=== PATIENT | male | born 1990 | race Caucasian/White ===

== ENCOUNTER 2019-08-06 11:40 | Emergency (ER) | payer SELFPAY ==
[~2019-08-06] VITALS: Ht 172.7 cm; Wt 59.1 kg
[2019-08-06 14:00] VITALS: BP 131/89
[2019-08-06 14:28] LABS: INFLUENZA TYPE A POSITIVE FOR TYPE A (NEGATIVE); INFLUENZA TYPE B NEGATIVE FOR TYPE B (NEGATIVE)
== END 2019-08-06 14:58 | disposition home or self-care (01) ==
LOC: EMS 11:43
DX: J10.1 Influenza due to other identified influenza virus with other respiratory manifestations (principal); R19.7 Diarrhea, unspecified
CPT/HCPCS: 87804